=== PATIENT | male | born 1990 | race American Indian/Alaskan Native ===

== ENCOUNTER 2021-08-31 13:09 | Emergency (ER) | payer SELFPAY | END 2021-09-01 04:41 | disposition left against medical advice (07) | LOC: ED 13:09 | DX: R10.84 Generalized abdominal pain (principal); Z53.21 Procedure and treatment not carried out due to patient leaving prior to being seen by health care provider ==

== ENCOUNTER 2022-03-24 14:14 | Emergency (ER) | payer SELFPAY ==
[2022-03-24 15:55] VITALS: BP 134/79
[2022-03-24] MEDS ORDERED: oxyCODONE /ACETAMINOPHEN 5-325MG TAB PO ONE (15:55)
[2022-03-24] MEDS ORDERED: KETOROLAC 10 MG TAB PO ONE (15:55)
[2022-03-24] MEDS ORDERED: AMOXICILLIN 500 MG CAP PO ONE (15:55)
[2022-03-24] MEDS ORDERED: predniSONE 20 MG TAB PO ONE (15:55)
--- NOTE | 2022-03-24 16:02 | Emergency Department Report ---
ED ENT HPI - General Chief complaint: Dental/Oral Stated complaint: EARACHE/TOOTHACHE Time Seen by Provider: 03/24/22 15:54 Source: patient Mode of arrival: Ambulatory Limitations: No Limitations - History of Present Illness Initial comments: 31 yo black male with no pmh presents to the ED for the evaluation of few day history of worsening toothache. He states that he woke up this am with increased pain and swelling to left face this am. He denies fever. MD complaint: tooth pain, ear pain -: Gradual, days(s) (3-4) Location: L ear, tooth # (17) Severity: severe Severity scale (0 -10): 10 Quality: aching Consistency: constant Worsens with: other (palpation) Context- Dental: history of dental caries Associated Symptoms: toothache. denies: fever - Related Data Previous Rx's Medication Instructions Recorded Last Taken Type Amoxicillin [Trimox CAP] 500 mg PO Q8H #30 capsule 11/21/13 Unknown Rx Ibuprofen [Motrin 800 MG tab] 800 mg PO TID PRN #30 tablet 11/21/13 Unknown Rx traMADoL [Ultram 50 MG tab] 50 mg PO Q6HR PRN #20 tablet 11/21/13 Unknown Rx Acetaminophen/Codeine [Tylenol 1 tab PO Q6H PRN #15 tab 03/24/22 Unknown Rx /Codeine # 3 tab] Amoxicillin [Amoxicillin TAB] 875 mg PO BID #14 tab 03/24/22 Unknown Rx Ketorolac [Toradol] 10 mg PO Q6H PRN #12 tab 03/24/22 Unknown Rx Allergies Allergy/AdvReac Type Severity Reaction Status Date / Time No Known Allergies Allergy Verified 03/24/22 15:56 ED Dental HPI - General Chief complaint: Dental/Oral Stated complaint: EARACHE/TOOTHACHE Time Seen by Provider: 03/24/22 15:54 Source: patient Mode of arrival: Ambulatory Limitations: No Limitations - History of Present Illness MD complaint: tooth pain, ear pain Context- Dental: history of dental caries, poor dental care Dental Associated Symptons: Yes: Headache, Earache. No: Sore Throat, Gum Swelling, Fever - Related Data Previous Rx's Medication Instructions Recorded Last Taken Type Amoxicillin [Trimox CAP] 500 mg PO Q8H #30 capsule 11/21/13 Unknown Rx Ibuprofen [Motrin 800 MG tab] 800 mg PO TID PRN #30 tablet 11/21/13 Unknown Rx traMADoL [Ultram 50 MG tab] 50 mg PO Q6HR PRN #20 tablet 11/21/13 Unknown Rx Acetaminophen/Codeine [Tylenol 1 tab PO Q6H PRN #15 tab 03/24/22 Unknown Rx /Codeine # 3 tab] Amoxicillin [Amoxicillin TAB] 875 mg PO BID #14 tab 03/24/22 Unknown Rx Ketorolac [Toradol] 10 mg PO Q6H PRN #12 tab 03/24/22 Unknown Rx Allergies Allergy/AdvReac Type Severity Reaction Status Date / Time No Known Allergies Allergy Verified 03/24/22 15:56 ED Review of Systems ROS: Stated complaint: EARACHE/TOOTHACHE Other details as noted in HPI Comment: All other systems reviewed and negative Constitutional: denies: fever ENT: ear pain, dental pain Respiratory: denies: shortness of breath Cardiovascular: denies: chest pain Gastrointestinal: denies: abdominal pain, nausea, vomiting Neurological: headache ED Past Medical Hx - Past Medical History Previous Medical History?: No - Surgical History Past Surgical History?: No - Social History Smoking Status: Current Every Day Smoker Substance Use Type: Alcohol - Medications Home Medications: Home Medications Medication Instructions Recorded Confirmed Last Taken Type Amoxicillin [Trimox CAP] 500 mg PO Q8H #30 capsule 11/21/13 Unknown Rx Ibuprofen [Motrin 800 MG tab] 800 mg PO TID PRN #30 tablet 11/21/13 Unknown Rx traMADoL [Ultram 50 MG tab] 50 mg PO Q6HR PRN #20 tablet 11/21/13 Unknown Rx Acetaminophen/Codeine [Tylenol 1 tab PO Q6H PRN #15 tab 03/24/22 Unknown Rx /Codeine # 3 tab] Amoxicillin [Amoxicillin TAB] 875 mg PO BID #14 tab 03/24/22 Unknown Rx Ketorolac [Toradol] 10 mg PO Q6H PRN #12 tab 03/24/22 Unknown Rx ED Physical Exam - General Limitations: No Limitations General appearance: alert, in no apparent distress - Head Head exam: Present: atraumatic, normocephalic - ENT ENT exam: Present: TM's normal bilaterally - Expanded ENT Exam Expanded Teeth exam: Present: dental caries, fractured tooth # (17), dental tenderness # (17), other (erythema, edema and abscess noted to tooth #17) Throat exam: Positive: normal inspection - Neck Neck exam: Present: normal inspection - Respiratory Respiratory exam: Absent: respiratory distress - Cardiovascular Cardiovascular Exam: Present: bradycardia - GI/Abdominal GI/Abdominal exam: Absent: distended - Extremities Exam Extremities exam: Present: normal inspection - Back Exam Back exam: Present: normal inspection - Neurological Exam Neurological exam: Present: alert, oriented X3 - Psychiatric Psychiatric exam: Present: normal affect, normal mood - Skin Skin exam: Present: warm, dry, intact, normal color ED Course Vital Signs 03/24/22 15:51 Temperature 98.1 F Pulse Rate 56 L Respiratory 17 Rate Blood Pressure 134/79 [Right] O2 Sat by Pulse 100 Oximetry ED Medical Decision Making - Medical Decision Making 31 yo black male with no pmh presents to the ED for the evaluation of few day history of worsening toothache. He states that he woke up this am with increased pain and swelling to left face this am. He denies fever. Physical exam consistent with dental abscess. Patient will be treated with amoxicillin, toradol, percocet, and prednisone in Ed then d/reji home with 7 day coarse of amoxicillin along with tylenol #3 and toradol to use as needed for pain. He is advised to take medications as directed and follow up with dentist as planned and follow up in ed as needed. He verbalized understanding of and agreement with plan of care. Critical care attestation.: If time is entered above; I have spent that time in minutes in the direct care of this critically ill patient, excluding procedure time. ED Disposition Clinical Impression: Dental abscess Disposition: 01 HOME / SELF CARE / HOMELESS Is pt being admited?: No Does the pt Need Aspirin: No Condition: Stable Instructions: Dental Abscess, [id number] Additional Instructions: Take medications as prescribed. Follow-up with dentist as previously planned. Return to the emergency department as needed. Prescriptions: Amoxicillin [Amoxicillin TAB] 875 mg PO BID #14 tab Ketorolac [Toradol] 10 mg PO Q6H PRN #12 tab PRN Reason: Pain Acetaminophen/Codeine [Tylenol /Codeine # 3 tab] 1 tab PO Q6H PRN #15 tab PRN Reason: Pain , Severe (7-10) Referrals: [facility] [Outside] - 3-5 Days [facility] [Outside] - 3-5 Days Forms: Work/School Release Form(ED) Time of Disposition: 16:03
== END 2022-03-24 19:37 | disposition home or self-care (01) ==
LOC: ED 14:14
DX: K04.7 Periapical abscess without sinus (principal); H92.02 Otalgia, left ear; F17.200 Nicotine dependence, unspecified, uncomplicated; Z72.89 Other problems related to lifestyle; Z79.899 Other long term (current) drug therapy
CPT/HCPCS: 99282

== ENCOUNTER 2022-04-27 16:40 | Emergency (ER) | payer SELFPAY ==
[2022-04-27 16:54] VITALS: BP 127/66
== END 2022-04-28 03:26 | disposition left against medical advice (07) ==
LOC: ED 16:40
DX: K08.89 Other specified disorders of teeth and supporting structures (principal); H92.02 Otalgia, left ear; Z53.21 Procedure and treatment not carried out due to patient leaving prior to being seen by health care provider